=== PATIENT | female | born 1970 | race Caucasian/White ===

== ENCOUNTER 2021-11-04 20:21 | Inpatient (IN) ==
[2021-11-04] MEDS ORDERED: methylPREDNISolone 125 MG/2 ML VIAL IV STA (20:53)
[2021-11-04] MEDS ORDERED: ALBUT/IPRATROP 3MG/0.5MG NEB 3 ML VIAL NEB STA ×2 (20:53→20:54)
[2021-11-04 21:26] LABS: Albumin Globulin Ratio 1.2 (0.9-2); Albumin Level 3.9 gm/dl (3.4-5.0); Bilirubin,Total 0.5 mg/dl (0.2-1.0); Calcium 8.7 mg/dl (8.5-10.1); Creatinine Clr Calc Pharmacy 88.1 ml/min; Est GFR (African American) 94.6 ml/min; Est GFR (Non-African American) 81.6 ml/min; Globulin 3.2 gm/dl (2.5-4.0); Potassium 3.8 mmol/L (3.5-5.1); Total Protein 7.1 gm/dl (6.0-8.3)
[2021-11-04 21:29] LABS: Base Excess VBG 1.2 mEq/L; Oxygen Saturation VBG 75.1 %; pH VBG 7.35 (7.36-7.41)
--- NOTE | 2021-11-04 21:34 | Emergency Department Note ---
History of Present Illness General Chief Complaint: Nausea Time Seen by Provider: 11/04/21 20:47 History of Present Illness Provider Complaint: shortness of breath Onset (ago): day(s) (2) Severity: severe Consistency/Duration: + progressively worsening Relieved By: + nothing Exacerbated By: + exertion and + coughing Context: + recent illness (cough fever); no choking/aspiration, no recent travel or no trauma/injury Known history of: COPD Associated symptoms: + fever, + cough, + wheezing, + sputum production and + chest congestion; no chest pain, no pain with inspiration, no orthopnea, no polyuria, no polydipsia, no palpitations, no diaphoresis, no nausea/vomiting, no syncope, no abdominal pain, no rash, no sense of impending doom or no lightheadedness Treatment prior to arrival: bronchodilator HPI Narrative: Patient denies any history of intubation or ICU admission for obstructive of lung disease. Related Data Home oxygen amount: none Home Medications Medication Instructions Recorded Confirmed Type albuterol sulfate 2.5 mg INHALATION DIRECTED PRN 11/04/21 11/04/21 History albuterol sulfate 90 mcg/actuation 2 puff INHALATION Q4H PRN 11/04/21 11/04/21 History aerosol inhaler aspirin 81 mg tablet,delayed 81 mg PO DAILY 11/04/21 11/04/21 History release fluticasone furoate 200 1 inh INHALATION DAILY 11/04/21 11/04/21 History mcg/actuation blister powder for inhalation (Arnuity Ellipta) fluticasone propionate 50 2 spray INTRANASAL DAILY 11/04/21 11/04/21 History mcg/actuation nasal spray,suspension loratadine 10 mg tablet (Claritin) 10 mg PO DAILY 11/04/21 11/04/21 History losartan 25 mg tablet 25 mg PO DAILY 11/04/21 11/04/21 History montelukast 10 mg tablet 10 mg PO HS 11/04/21 11/04/21 History (Singulair) nicotine 21 mg/24 hr daily 1 patch TRANSDERMAL DAILY 11/04/21 11/04/21 History transdermal patch omeprazole 10 mg capsule,delayed 10 mg PO DAILY 11/04/21 11/04/21 History release umeclidinium 62.5 mcg-vilanterol 1 inh INHALATION DAILY 11/04/21 11/04/21 History 25 mcg/actuation powdr for inhalation (Anoro Ellipta) verapamil 120 mg tablet,extended 120 mg PO DAILY 11/04/21 11/04/21 History release Allergies Allergy/AdvReac Type Severity Reaction Status Date / Time Sulfa (Sulfonamide Allergy Intermediate Rash Verified 11/04/21 21:38 Antibiotics) sulfamethoxazole Allergy Intermediate Rash Verified 11/04/21 21:38 [From Bactrim] trimethoprim [From Bactrim] Allergy Intermediate Rash Verified 11/04/21 21:38 Past Med/Surg History Medical History (Updated 11/04/21 @ 22:28 by Elieser Juares) Asthma Heart disease No pertinent family history Surgical History (Updated 11/04/21 @ 21:27 by Elieser Juares) No pertinent past surgical history Social History Smoking Status: Current some day smoker Feels Safe at Home: Yes Review of Systems A total of 10 systems reviewed and were otherwise negative Physical Exam Vital Signs: Vital Signs - 24 hr 11/04/21 20:31 11/04/21 20:34 11/04/21 20:37 Temperature 37.6 C H Temperature Source Oral Pulse Rate 104 H 110 H 105 H Pulse Rate from Sp O2 Sensor 104 H 105 H Respiratory Rate 20 18 20 Respiratory Effort / Characteristics Non-Labored Sponta neous Respiratory Depth Normal Respiratory Patter n Regular Blood Pressure 120/85 120/85 Blood Pressure Skylar n 96 96 Blood Pressure Pos ition Lying Pulse Oximetry 90 88 L 92 Oxygen Delivery Me thod Nasal Cannula Room Air Oxygen Flow Rate 2 Sepsis Recent Feve r Within 48 Hours No Sepsis New/Unexpla ined Change in Men yadiel Status N/A Sepsis Action Take n by Nursing No Action Required 11/04/21 20:40 11/04/21 20:50 11/04/21 21:00 Temperature Temperature Source Pulse Rate 100 H 95 H 96 H Pulse Rate from Sp O2 Sensor 102 H 95 H 96 H Respiratory Rate 20 20 20 Respiratory Effort / Characteristics Respiratory Depth Respiratory Patter n Blood Pressure 130/77 Blood Pressure Skylar n 94 Blood Pressure Pos ition Pulse Oximetry 97 98 94 Oxygen Delivery Me thod Oxygen Flow Rate Sepsis Recent Feve r Within 48 Hours Sepsis New/Unexpla ined Change in Men yadiel Status Sepsis Action Take n by Nursing 11/04/21 21:10 11/04/21 21:20 11/04/21 21:30 Temperature Temperature Source Pulse Rate 95 H 99 H 112 H Pulse Rate from Sp O2 Sensor 95 H 100 H 102 H Respiratory Rate 20 23 24 Respiratory Effort / Characteristics Respiratory Depth Respiratory Patter n Blood Pressure Blood Pressure Skylar n Blood Pressure Pos ition Pulse Oximetry 96 96 92 Oxygen Delivery Me thod Nasal Cannula Oxygen Flow Rate 2 Sepsis Recent Feve r Within 48 Hours Sepsis New/Unexpla ined Change in Men yadiel Status Sepsis Action Take n by Nursing Physical Exam: Physical Exam GENERAL: She is oriented to person, place, and time. She appears well-developed and well-nourished. She does not appear distressed. HENT: Exam performed. -Head: Normocephalic and atraumatic. -Right Ear: External ear normal. No mastoid tenderness. -Left Ear: External ear normal. No mastoid tenderness. -Mouth/Throat: The oropharynx is clear and moist. No trismus in the jaw. No dental abscesses or uvula swelling. No oropharyngeal exudate or tonsillar abscesses. EYES: Conjunctivae and EOM are normal. Pupils are equal, round, and reactive to light. Right eye exhibits no discharge. Left eye exhibits no discharge. No scleral icterus. NECK: Normal range of motion. Neck supple. No JVD present. No spinous process tenderness present. No carotid bruit present. No rigidity. No tracheal deviation and normal range of motion present. No Brudzinski's sign and no Kernig's sign noted. CV: Tachycardic Rate, regular rhythm, normal heart sounds and intact distal pulses. There is no peripheral edema. Palpable radial pulses bue. PULM/CHEST: Tachypneic, expiratory wheezes bilaterally. -Chest Wall: She exhibits no tenderness. ABD: The abdomen is soft. Bowel sounds are normal. She has no distension. No mass is present. There is no tenderness. There is no rebound, no guarding, no Guy's sign and no tenderness at McBurney's point. Rovsig negative MUSC/SKEL: Normal range of motion. There is no peripheral edema, tenderness or deformity. LYMPH: No cervical adenopathy. NEURO: She is alert and oriented to person, place, and time. She has normal strength. No cranial nerve deficit or sensory deficit. Coordination and gait normal. GCS eye subscore is 4. GCS verbal subscore is 5. GCS motor subscore is 6. Cerebellar tests wnl. SKIN: Skin is warm and dry. She is not diaphoretic. PSYCH: She has a normal mood and affect. Behavior is normal. Judgment and thought content normal. Course Course 2046: The patient was evaluated in room A4. A complete history and physical exam was performed Cardiac monitoring: An order was placed for continuous cardiac monitoring. The monitor shows a rate of 110 with sinus tachycardia rhythm Patient was found to be hypoxic on room air. Patient was placed on supplemental oxygen via nasal cannula which improved her oxygen saturation. 2225: Vital signs stable.Labs and imaging within normal limits. Patient satting well on supplemental oxygen via nasal cannula status post 2 DuoNeb's and IV steroids. [facility]. Administered Medications Discontinued Medications Albuterol (Albut/Ipratrop 3mg/0.5mg Neb 3 Ml Vial) 3 ml NEB NOW STA; Protocol Stop: 11/04/21 20:54 Last Admin: 11/04/21 21:33 Dose: 3 ml Documented by: [id number] Albuterol (Albut/Ipratrop 3mg/0.5mg Neb 3 Ml Vial) 3 ml NEB NOW STA; Protocol Stop: 11/04/21 20:55 Last Admin: 11/04/21 22:17 Dose: 3 ml Documented by: [id number] Methylprednisolone (Methylprednisolone 125 Mg/2 Ml Vial) 125 mg IV NOW STA Stop: 11/04/21 20:54 Last Admin: 11/04/21 21:34 Dose: 125 mg Documented by: [id number] Medical Decision Making Laboratory Data Result diagrams: 11/04/21 21:19 11/04/21 20:30 Lab Results 11/04/21 11/04/21 11/04/21 Range/Units 20:30 21:00 21:18 WBC (4.8-10.8) K/uL RBC (4.2-5.4) M/uL Hgb (12.0-16.0) g/dL Hct (37-47) % MCV (80-100) fL MCH (25-34) pg MCHC (32-36) g/dL RDW Std Deviation (36.4-46.3) fL RDW Coeff of Mayuri (11.5-14.5) % Plt Count (130-400) K/uL MPV (7.4-10.4) fL Immature Gran % (Auto) % Neut % (Auto) % Lymph % (Auto) % [place] % (Auto) % Eos % (Auto) % Baso % (Auto) % Neut # (Auto) (1.4-6.5) K/uL Lymph # (Auto) (1.2-3.4) K/uL [place] # (Auto) (0.11-0.59) K/uL Eos # (Auto) (0-0.5) K/uL Baso # (Auto) (0-0.2) K/uL Immature Gran # (Auto) (0.00-0.02) K/uL VBG pH 7.35 L (7.36-7.41) VBG pCO2 51 H (38-50) mmHg VBG pO2 41 mmHg VBG HCO3 28 mmol/L VBG O2 Saturation 75.1 % VBG Base Excess 1.2 mEq/L Barometric Pressure 732.0 mm/Hg Sodium 140 (136-145) mmol/L Potassium 3.8 (3.5-5.1) mmol/L Chloride 108 H (98-107) mmol/L Carbon Dioxide 26 (21-32) mmol/L Anion Gap 6 (3-11) BUN 10 (6-23) mg/dl Creatinine 0.83 (0.6-1.2) mg/dl Est Cr Clr Drug Dosing 88.1 ml/min Est GFR ( Amer) 94.6 ml/min Est GFR (Non-Af Amer) 81.6 ml/min BUN/Creatinine Ratio 12.0 (10-20) Glucose 103 H (70-99(Fasting)) mg/dl Calcium 8.7 (8.5-10.1) mg/dl Total Bilirubin 0.5 (0.2-1.0) mg/dl AST 14 (13-39) U/L ALT 10 (7-52) U/L Alkaline Phosphatase 102 (34-104) U/L Total Protein 7.1 (6.0-8.3) gm/dl Albumin 3.9 (3.4-5.0) gm/dl Globulin 3.2 (2.5-4.0) gm/dl Albumin/Globulin Ratio 1.2 (0.9-2) SARS-CoV-2 (PCR) NEGATIVE (Negative) Influenza Type A (PCR) Negative (Neg) Influenza Type B (PCR) Negative (Neg) RSV (RT-PCR) Negative (Neg) 11/04/21 Range/Units 21:19 WBC 8.44 (4.8-10.8) K/uL RBC 4.32 (4.2-5.4) M/uL Hgb 13.2 (12.0-16.0) g/dL Hct 40.3 (37-47) % MCV 93.3 (80-100) fL MCH 30.6 (25-34) pg MCHC 32.8 (32-36) g/dL RDW Std Deviation 46.0 (36.4-46.3) fL RDW Coeff of Mayuri 13.5 (11.5-14.5) % Plt Count 173 (130-400) K/uL MPV 12.9 H (7.4-10.4) fL Immature Gran % (Auto) 0.4 % Neut % (Auto) 76.5 % Lymph % (Auto) 15.9 % [place] % (Auto) 6.6 % Eos % (Auto) 0.1 % Baso % (Auto) 0.5 % Neut # (Auto) 6.46 (1.4-6.5) K/uL Lymph # (Auto) 1.34 (1.2-3.4) K/uL [place] # (Auto) 0.56 (0.11-0.59) K/uL Eos # (Auto) 0.01 (0-0.5) K/uL Baso # (Auto) 0.04 (0-0.2) K/uL Immature Gran # (Auto) 0.03 H (0.00-0.02) K/uL VBG pH (7.36-7.41) VBG pCO2 (38-50) mmHg VBG pO2 mmHg VBG HCO3 mmol/L VBG O2 Saturation % VBG Base Excess mEq/L Barometric Pressure mm/Hg Sodium (136-145) mmol/L Potassium (3.5-5.1) mmol/L Chloride (98-107) mmol/L Carbon Dioxide (21-32) mmol/L Anion Gap (3-11) BUN (6-23) mg/dl Creatinine (0.6-1.2) mg/dl Est Cr Clr Drug Dosing ml/min Est GFR ( Amer) ml/min Est GFR (Non-Af Amer) ml/min BUN/Creatinine Ratio (10-20) Glucose (70-99(Fasting)) mg/dl Calcium (8.5-10.1) mg/dl Total Bilirubin (0.2-1.0) mg/dl AST (13-39) U/L ALT (7-52) U/L Alkaline Phosphatase (34-104) U/L Total Protein (6.0-8.3) gm/dl Albumin (3.4-5.0) gm/dl Globulin (2.5-4.0) gm/dl Albumin/Globulin Ratio (0.9-2) SARS-CoV-2 (PCR) (Negative) Influenza Type A (PCR) (Neg) Influenza Type B (PCR) (Neg) RSV (RT-PCR) (Neg) Imaging Data My Impression: Chest x-ray negative. Airway clear. No pneumothorax. No consolidation. No cardiomegaly or cephalization.. No free air under the diaphragm. No fractures of the skeletal structures. ECG Data Interpretation: Sinus tachycardia with rate of 103. MI QRS and QTc intervals are within normal limits. No ST elevation or ST depression. [facility] Narrative 2046: The patient was evaluated in room A4. A complete history and physical exam was performed Cardiac monitoring: An order was placed for continuous cardiac monitoring. The monitor shows a rate of 110 with sinus tachycardia rhythm Patient was found to be hypoxic on room air. Patient was placed on supplemental oxygen via nasal cannula which improved her oxygen saturation. 2226: Vital signs stable.Labs and imaging within normal limits. Patient satting well on supplemental oxygen via nasal cannula status post 2 DuoNeb's and IV steroids. [facility]. Impression & Plan Hypoxia, Asthma exacerbation in COPD Critical Care Time Critical Care Time: Yes Total Critical Care Time: 51 I have personally spent greater than 51 minutes of critical care time in the direct management of this patient. This includes bedside care, interpretation of diagnostic studies, and testing, discussion with consultants, patient, and family members, and other required patient management activities. This 51 minutes is in excess of all separately billable procedures. Discharge Plan Visit Data Chief Complaint: Nausea ED Provider: Elieser Juares Discharge Problem: Hypoxia, Asthma exacerbation in COPD Patient Disposition: Admitted As Inpatient Forms Stand Alone Forms: My [facility] Prescriptions Prescriptions: No Action verapamil 120 mg Tablet Extended Release 120 mg PO DAILY RF: 0 albuterol sulfate 2.5 mg /3 mL (0.083 %) Solution For Nebulization 2.5 mg INHALATION DIRECTED PRN (Reason: Shortness Of Breath) RF: 0 aspirin 81 mg Tablet,Delayed Release (Dr/Ec) 81 mg PO DAILY RF: 0 omeprazole 10 mg Capsule,Delayed Release(Dr/Ec) 10 mg PO DAILY RF: 0 losartan 25 mg Tablet 25 mg PO DAILY RF: 0 nicotine 21 mg/24 hr Patch 24 Hour 1 patch TRANSDERMAL DAILY RF: 0 montelukast [Singulair] 10 mg Tablet 10 mg PO HS RF: 0 albuterol sulfate 90 mcg/actuation Hfa Aerosol Inhaler 2 puff INHALATION Q4H PRN (Reason: Wheezing/COUGH) RF: 0 fluticasone propionate [Flonase] 50 mcg/actuation [place],Suspension 2 spray INTRANASAL DAILY RF: 0 loratadine [Claritin] 10 mg Tablet 10 mg PO DAILY RF: 0 Anoro Ellipta 62.5-25 mcg/actuation Blister With Device 1 inh INHALATION DAILY RF: 0 Arnuity Ellipta 200 mcg/actuation Blister With Device 1 inh INHALATION DAILY RF: 0 Referrals Referrals: Reilly Lewis [Outside Practitioners] -
[2021-11-04 21:52] LABS: Influenza A virus by PCR Negative (Neg); Influenza B virus by PCR Negative (Neg); RSV by PCR Negative (Neg); SARS CoV2 RNA(COVID-19) InHosp NEGATIVE (Negative)
[2021-11-04 21:58] LABS: Basophils # (auto) 0.04 K/uL (0-0.2); Basophils % (auto) 0.5 %; Eosinophils # (auto) 0.01 K/uL (0-0.5); Eosinophils % (auto) 0.1 %; Hematocrit (blood only) 40.3 % (37-47); Hemoglobin 13.2 g/dL (12.0-16.0); Immature Granulocytes # (auto) 0.03 K/uL (0.00-0.02); Immature Granulocytes % (auto) 0.4 %; Lymphocytes # (auto) 1.34 K/uL (1.2-3.4); Lymphocytes % (auto) 15.9 %; Mean Corpuscular Hemoglobin 30.6 pg (25-34); Mean Corpuscular Hgb Conc 32.8 g/dL (32-36); Mean Corpuscular Volume 93.3 fL (80-100); Mean Platelet Volume 12.9 fL (7.4-10.4); Monocytes # (auto) 0.56 K/uL (0.11-0.59); Monocytes % (auto) 6.6 %; Neutrophils # (auto) 6.46 K/uL (1.4-6.5); Neutrophils % (auto) 76.5 %; Platelet Count 173 K/uL (130-400); RDW Coefficient of Variation 13.5 % (11.5-14.5); Red Blood Count 4.32 M/uL (4.2-5.4); White Blood Count 8.44 K/uL (4.8-10.8)
[2021-11-04] MEDS ORDERED: POTASSIUM CHLORIDE CRTAB 20 MEQ TABCR PO STA (22:25)
[2021-11-04] MEDS ORDERED: MAGNESIUM SULFATE / D5W 1 GM/100 ML BAG IV ONE (22:25)
[2021-11-04] MEDS ORDERED: DOXYCYCLINE HYCLATE 100 MG in DEXTROSE 5% 100 ML IV STA (22:25)
[2021-11-04] MEDS ORDERED: ACETAMINOPHEN 325 MG TAB PO STA (22:26)
[2021-11-04 22:46] LABS: Base Excess ABG 0.7 mEq/L (-9-1.8); HCO3 ABG 26 mmol/L (19-24); Oxygen Saturation ABG 99.3 % (90-95); PCO2 ABG 45 mmHg (35-46); PO2 ABG 173 mmHg (80-95); pH ABG 7.39 (7.35-7.45)
[2021-11-04 22:50] LABS: Allen Test Pos (Pos)
--- NOTE | 2021-11-04 22:53 | History & Physical Report ---
Date of Service November 04, 2021 Assessment & Plan (1) Acute hypoxemic respiratory failure: Plan: Secondary to COPD exacerbation/complicated bronchitis Severe sepsis secondary to above chronic diastolic heart failure (EF 65 to 69%, TTE 2020 ), patient euvolemic to dry history of palpitations on verapamil history CAD/splenic artery aneurysm as per records, hypertension, BP on the lower side hx traumatic ICH ongoing tobacco abuse Medical telemetry Supplemental O2 Baseline ABG CS, check lactic acid, IVF, Doxycycline Nebs RTC, prednisone course Pulmonary consult if without improvement Nicotine patch DVT prophylaxis. Lovenox subcu Full code Text document was generated using [employer] voice recognition software. It may contain grammatical or spelling errors. Kindly contact undersigned for clarification of any documentation item in question. History of Present Illness Chief Complaint: Worsening cough, shortness of breath Primary Care Provider: Fabricio Og MD History obtained from patient, family, and records. Medical history significant for chronic diastolic heart failure (EF 65 to 69%, TTE 2020 ), history of palpitations on verapamil, history CAD/splenic artery aneurysm as per records, COPD, hypertension, traumatic ICH, NAFLD, ongoing tobacco abuse. 3 days history of junky cough symptoms and wheezing, worsening shortness of breath without chest pain. Denies aspiration, no known sick contacts. Patient completed COVID-19 vaccination. No fluid retention. Patient received steroid and neb treatment at the ER for COPD exacerbation. Medical History as above Surgical History : Partial vulvectomy Family History : COPD, anxiety disorder Personal/Social history : 1/2 pack daily, occasional EtOH intake, applying for disability Allergies Allergy/AdvReac Type Severity Reaction Status Date / Time Sulfa (Sulfonamide Allergy Intermediate Rash Verified 11/04/21 21:38 Antibiotics) sulfamethoxazole Allergy Intermediate Rash Verified 11/04/21 21:38 [From Bactrim] trimethoprim [From Bactrim] Allergy Intermediate Rash Verified 11/04/21 21:38 Home Medications Medication Instructions Recorded Confirmed Type albuterol sulfate 2.5 mg INHALATION DIRECTED PRN 11/04/21 11/04/21 History albuterol sulfate 90 mcg/actuation 2 puff INHALATION Q4H PRN 11/04/21 11/04/21 History aerosol inhaler aspirin 81 mg tablet,delayed 81 mg PO DAILY 11/04/21 11/04/21 History release fluticasone furoate 200 1 inh INHALATION DAILY 11/04/21 11/04/21 History mcg/actuation blister powder for inhalation (Arnuity Ellipta) fluticasone propionate 50 2 spray INTRANASAL DAILY 11/04/21 11/04/21 History mcg/actuation nasal spray,suspension loratadine 10 mg tablet (Claritin) 10 mg PO DAILY 11/04/21 11/04/21 History losartan 25 mg tablet 25 mg PO DAILY 11/04/21 11/04/21 History montelukast 10 mg tablet 10 mg PO HS 11/04/21 11/04/21 History (Singulair) nicotine 21 mg/24 hr daily 1 patch TRANSDERMAL DAILY 11/04/21 11/04/21 History transdermal patch omeprazole 10 mg capsule,delayed 10 mg PO DAILY 11/04/21 11/04/21 History release umeclidinium 62.5 mcg-vilanterol 1 inh INHALATION DAILY 11/04/21 11/04/21 History 25 mcg/actuation powdr for inhalation (Anoro Ellipta) verapamil 120 mg tablet,extended 120 mg PO DAILY 11/04/21 11/04/21 History release Past Med/Surg History Medical History (Updated 11/05/21 @ 00:03 by Everett Gutierrez MD) Asthma Heart disease No pertinent family history Surgical History (Updated 11/04/21 @ 21:27 by Elieser Juares) No pertinent past surgical history Social History Smoking Status: Current some day smoker Feels Safe at Home: Yes Review of Systems Review of Systems: As per HPI, all 10 systems reviewed, all other ROS negative Physical Exam Physical Exam: GENERAL: Slightly uncomfortable, obese, no respiratory distress SKIN: Normal color, warm HEENT: [place] palpebral conjunctivae, no ptosis, dry buccal mucosa, nasal cannula in place NECK : Supple, short neck, no tenderness CHEST : Decreased breath sounds, expiratory wheezes, no tenderness HEART : Tachycardic, no obvious murmurs ABDOMEN: Some distention, nontender EXTREMITIES : Minimal LE swelling, no LE tenderness, no other conspicuous deformities noted NEUROLOGIC : Coherent, no facial asymmetry, no other gross focality Results & Data Results & Data ([facility]) Vital Signs (Past 12 Hours) Vital Signs Temp Pulse Resp BP Pulse Ox 11/04/21 21:30 112 H 24 92 11/04/21 21:20 99 H 23 96 11/04/21 21:10 95 H 20 96 11/04/21 21:00 96 H 20 130/77 94 11/04/21 20:50 95 H 20 98 11/04/21 20:40 100 H 20 97 11/04/21 20:37 105 H 20 120/85 92 11/04/21 20:34 37.6 C H 110 H 18 120/85 88 L 11/04/21 20:31 104 H 20 90 Laboratory Results Laboratory Results WBC 8.44 K/uL (4.8-10.8) 11/04/21 21:19 RBC 4.32 M/uL (4.2-5.4) 11/04/21 21:19 Hgb 13.2 g/dL (12.0-16.0) 11/04/21 21:19 Hct 40.3 % (37-47) 11/04/21 21:19 MCV 93.3 fL (80-100) 11/04/21 21:19 MCH 30.6 pg (25-34) 11/04/21 21:19 MCHC 32.8 g/dL (32-36) 11/04/21 21:19 RDW Std Deviation 46.0 fL (36.4-46.3) 11/04/21 21:19 RDW Coeff of Mayuri 13.5 % (11.5-14.5) 11/04/21 21:19 Plt Count 173 K/uL (130-400) 11/04/21 21:19 MPV 12.9 fL (7.4-10.4) H 11/04/21 21:19 Immature Gran % (Auto) 0.4 % 11/04/21 21:19 Neut % (Auto) 76.5 % 11/04/21 21:19 Lymph % (Auto) 15.9 % 11/04/21 21:19 [place] % (Auto) 6.6 % 11/04/21 21:19 Eos % (Auto) 0.1 % 11/04/21 21:19 Baso % (Auto) 0.5 % 11/04/21 21:19 Neut # (Auto) 6.46 K/uL (1.4-6.5) 11/04/21 21:19 Lymph # (Auto) 1.34 K/uL (1.2-3.4) 04/11/22 21:19 [place] # (Auto) 0.56 K/uL (0.11-0.59) 11/04/21 21:19 Eos # (Auto) 0.01 K/uL (0-0.5) 11/04/21 21:19 Baso # (Auto) 0.04 K/uL (0-0.2) 11/04/21 21:19 Immature Gran # (Auto) 0.03 K/uL (0.00-0.02) H 11/04/21 21:19 ABG pH 7.39 (7.35-7.45) 11/04/21 22:35 ABG pCO2 45 mmHg (35-46) 11/04/21 22:35 ABG pO2 173 mmHg (80-95) H 11/04/21 22:35 ABG HCO3 26 mmol/L (19-24) H 11/04/21 22:35 ABG O2 Saturation 99.3 % (90-95) H 11/04/21 22:35 ABG Base Excess 0.7 mEq/L (-9-1.8) 11/04/21 22:35 [place] Test Pos (Pos) 11/04/21 22:35 VBG pH 7.35 (7.36-7.41) L 11/04/21 21:18 VBG pCO2 51 mmHg (38-50) H 11/04/21 21:18 VBG pO2 41 mmHg 11/04/21 21:18 VBG HCO3 28 mmol/L 11/04/21 21:18 VBG O2 Saturation 75.1 % 11/04/21 21:18 VBG Base Excess 1.2 mEq/L 11/04/21 21:18 Barometric Pressure 732.0 mm/Hg 11/04/21 21:18 Oxygen Given RA 11/04/21 22:35 Sodium 140 mmol/L (136-145) 11/04/21 20:30 Potassium 3.8 mmol/L (3.5-5.1) 11/04/21 20:30 Chloride 108 mmol/L (98-107) H 11/04/21 20:30 Carbon Dioxide 26 mmol/L (21-32) 11/04/21 20:30 Anion Gap 6 (3-11) 11/04/21 20:30 BUN 10 mg/dl (6-23) 11/04/21 20:30 Creatinine 0.83 mg/dl (0.6-1.2) 11/04/21 20:30 Est Cr Clr Drug Dosing 88.1 ml/min 11/04/21 20:30 Est GFR ( Amer) 94.6 ml/min 11/04/21 20:30 Est GFR (Non-Af Amer) 81.6 ml/min 11/04/21 20:30 BUN/Creatinine Ratio 12.0 (10-20) 11/04/21 20:30 Glucose 103 mg/dl (70-99(Fasting)) H 11/04/21 20:30 Calcium 8.7 mg/dl (8.5-10.1) 11/04/21 20:30 Total Bilirubin 0.5 mg/dl (0.2-1.0) 11/04/21 20:30 AST 14 U/L (13-39) 11/04/21 20:30 ALT 10 U/L (7-52) 11/04/21 20:30 Alkaline Phosphatase 102 U/L (34-104) 11/04/21 20:30 Total Protein 7.1 gm/dl (6.0-8.3) 11/04/21 20:30 Albumin 3.9 gm/dl (3.4-5.0) 11/04/21 20:30 Globulin 3.2 gm/dl (2.5-4.0) 11/04/21 20:30 Albumin/Globulin Ratio 1.2 (0.9-2) 11/04/21 20:30 SARS-CoV-2 (PCR) NEGATIVE (Negative) 11/04/21 21:00 Influenza Type A (PCR) Negative (Neg) 11/04/21 21:00 Influenza Type B (PCR) Negative (Neg) 11/04/21 21:00 RSV (RT-PCR) Negative (Neg) 11/04/21 21:00 Diagnostic Findings Chest x-ray as per my interpretation no infiltrate, atelectasis EKG pending
[2021-11-04] MEDS ORDERED: NICOTINE 14 MG/24 HR PATCH TD SCH (22:55)
[2021-11-04 22:59] LABS: Partial Thromboplastin Ratio 0.8
[2021-11-04] MEDS: LACTATED RINGER'S 1,000 ML IV ONE ×2 (23:14→23:38)
[2021-11-05] MEDS ORDERED: traMADol HCL 50 MG TABLET PO PRN (00:14)
[2021-11-05] MEDS ORDERED: ACETAMINOPHEN 325 MG TAB PO PRN (00:14)
[2021-11-05] MEDS ORDERED: PROMETHAZINE HCL 12.5 MG in SODIUM CHLORIDE 0.9% 50 ML IV PRN (00:14)
[2021-11-05] MEDS ORDERED: XOPENEX/ATROVENT 1.25mg/0.5MG NEB COMBO NEB SCH (01:00)
[2021-11-05] MEDS: LEVALBUTEROL 1.25MG/0.5ML NEB INH SCH ×3 (01:10→13:05)
[2021-11-05] MEDS: IPRATROPIUM BROMIDE NEB SOLN 0.02% 2.5 ML VIAL INH SCH ×3 (01:10→13:05)
--- NOTE | 2021-11-05 07:13 | XRay Report ---
XR chest 1V portable CLINICAL HISTORY: sob. COMPARISON STUDY: 06/24/2016 TECHNIQUE: 1 view of the chest FINDINGS: Single frontal view of the chest demonstrates the cardiomediastinal silhouette to be within normal li mits. There is a decreased inspiratory effort with elevation of the hemidiaphragms and crowding of th e bronchovascular markings at the lung bases and centrally. The lungs are clear of alveolar opacities . There is no evidence for pleural effusion. There is no evidence for vascular congestion. There is n o acute osseous pathology. IMPRESSION: 1. . There is a decreased inspiratory effort with otherwise no acute chest disease. ACT 112: Negative or not required by law. Electronically signed by: Dharmesh Coon M.D. 11/05/2021 7:12 AM
[2021-11-05] MEDS ORDERED: DOXYCYCLINE HYCLATE 100 MG CAP PO SCH (09:00)
[2021-11-05] MEDS ORDERED: predniSONE 20 MG TAB PO SCH (09:00)
[2021-11-05] MEDS ORDERED: ENOXAPARIN INJ 40 MG/0.4 ML SYR SQ SCH (09:00)
[2021-11-05] MEDS ORDERED: PANTOprazole 40 MG TAB PO SCH (09:00)
[2021-11-05] MEDS ORDERED: ASPIRIN 81 MG ECTAB PO SCH (09:00)
[2021-11-05] MEDS ORDERED: FLUTICASONE FUROATE 200MCG 14 PUFFS/INHALER INH SCH (09:00)
[2021-11-05] MEDS ORDERED: LORATADINE 10 MG TAB PO SCH (09:00)
[2021-11-05] MEDS ORDERED: LOSARTAN POTASSIUM 25 MG TAB PO SCH (09:00)
[2021-11-05] MEDS ORDERED: UMECLIDINIUM/VILANTEROL 62.5/25MCG 7 PUFFS/INHALER INH SCH (09:00)
[2021-11-05] MEDS ORDERED: VERAPAMIL HCL 120 MG TABCR PO SCH (09:00)
[2021-11-05] MEDS ORDERED: FLUTICASONE PROPIONATE NA SPR 16 GM BTL NAE SCH (09:00)
[2021-11-05] MEDS ORDERED: NICOTINE 21 MG/24 HR TDSY TD SCH (09:00)
--- NOTE | 2021-11-05 15:21 | Discharge Summary ---
Date of Service November 05, 2021 Admission HPI Per Admitting Provider History obtained from patient, family, and records. Medical history significant for chronic diastolic heart failure (EF 65 to 69%, TTE 2020 ), history of palpitations on verapamil, history CAD/splenic artery aneurysm as per records, COPD, hypertension, traumatic ICH, NAFLD, ongoing tobacco abuse. 3 days history of junky cough symptoms and wheezing, worsening shortness of breath without chest pain. Denies aspiration, no known sick contacts. Patient completed COVID-19 vaccination. No fluid retention. Patient received steroid and neb treatment at the ER for COPD exacerbation. Medical History as above Surgical History : Partial vulvectomy Family History : COPD, anxiety disorder Personal/Social history : 1/2 pack daily, occasional EtOH intake, applying for disability Admission Exam Per Admitting Provider GENERAL: Slightly uncomfortable, obese, no respiratory distress SKIN: Normal color, warm HEENT: [place] palpebral conjunctivae, no ptosis, dry buccal mucosa, nasal cannula in place NECK : Supple, short neck, no tenderness CHEST : Decreased breath sounds, expiratory wheezes, no tenderness HEART : Tachycardic, no obvious murmurs ABDOMEN: Some distention, nontender EXTREMITIES : Minimal LE swelling, no LE tenderness, no other conspicuous deformities noted NEUROLOGIC : Coherent, no facial asymmetry, no other gross focality Principal Diagnosis Acute hypoxemic respiratory failure Discharge Exam General- No acute distress Head- atraumatic Eyes- PERRL, EOMI, ENT- oropharynx clear Neck- supple, no JVD Lungs- Diminished breath sound Heart- regular rhythm; no murmur Abdomen- normal bowel sounds, soft, nontender Extremities- no calf tenderness Neuro- alert, oriented x 3; PERRL, EOMI; no facial palsy; no dysarthria Skin- warm & dry Discharge Data Allergies Allergy/AdvReac Type Severity Reaction Status Date / Time Sulfa (Sulfonamide Allergy Intermediate Rash Verified 11/04/21 21:38 Antibiotics) sulfamethoxazole Allergy Intermediate Rash Verified 11/04/21 21:38 [From Bactrim] trimethoprim [From Bactrim] Allergy Intermediate Rash Verified 11/04/21 21:38 Consultations 11/04/21 22:21 ED Decision to Admit Stat Ordered Studies R chest 1V portable CLINICAL HISTORY: sob. COMPARISON STUDY: 06/24/2016 TECHNIQUE: 1 view of the chest FINDINGS: Single frontal view of the chest demonstrates the cardiomediastinal silhouette to be within normal limits. There is a decreased inspiratory effort with elevation of the hemidiaphragms and crowding of the bronchovascular markings at the lung bases and centrally. The lungs are clear of alveolar opacities. There is no evidence for pleural effusion. There is no evidence for vascular congestion. There is no acute osseous pathology. IMPRESSION: 1. . There is a decreased inspiratory effort with otherwise no acute chest disease. ACT 112: Negative or not required by law. Electronically signed by: Dahrmesh Coon M.D. 11/05/2021 7:12 AM Dictated:11/05/21710 Transcribed: 11/05/21710 Hospital Course (1) Acute hypoxemic respiratory failure: Secondary to COPD exacerbation/complicated bronchitis CXR showed decreased inspiratory effort with otherwise no acute chest disease. Received Solumedrol and doxycycline on admission Continue Steroid and doxycycline Continue neb treatment Pt has been off oxygen supplement Walk in the hallway while monitor her oxygen level that was above 90% Will discharge home to complete short course of abx and steroid chronic diastolic heart failure (EF 65 to 69%, TTE 2020 ), patient euvolemic to dry Stable History of palpitations Continue verapamil Tobacco abuse Nicotine patch Counseling on smoking cessation DVT prophylaxis. Lovenox subcu Full code Total Time Total Time Spent Total Time Spent (In Minutes): 35 minutes Discharge Plan Discharge Items Patient Disposition: Home - Self-Care Reason For Visit: RESP FAILURE Discharge Diagnosis: Acute hypoxemic respiratory failure Activity: Resume your previous activity Non-emergency contact: Primary Care Provider Call non-emergency contact if: you have any medication questions and your symptoms worsen Follow-up/Referrals: Fabricio Og MD [Primary Care Provider] - (Date & Time 11/11/2021 10:00 AM Provider Fabricio Og MD Department [facility] ) Diet: Heart Healthy Addtl Attending Provider Instructions: Follow up with your primary care provider dr. Og on 11/11/2021 @ 10:00 AM at the [facility] Counseling on smoking cessation Complete the course of prednisone and antibiotic Continue nebulizer treatment with albuterol inhaler and ipratropium Seek medical attention if you develop any shortness of breath Pending Studies at Discharge: No Stand-Alone Forms: My [employer], Smoking Cessation Medications and DC Order Prescriptions: New ipratropium bromide 0.02 % Solution 0.5 mg inhalation Q6R Qty: 30 RF: 0 Continued verapamil 120 mg Tablet Extended Release 120 mg PO DAILY RF: 0 albuterol sulfate 2.5 mg /3 mL (0.083 %) Solution For Nebulization 2.5 mg INHALATION DIRECTED PRN (Reason: Shortness Of Breath) RF: 0 aspirin 81 mg Tablet,Delayed Release (Dr/Ec) 81 mg PO DAILY RF: 0 omeprazole 10 mg Capsule,Delayed Release(Dr/Ec) 10 mg PO DAILY RF: 0 losartan 25 mg Tablet 25 mg PO DAILY RF: 0 nicotine 21 mg/24 hr Patch 24 Hour 1 patch TRANSDERMAL DAILY RF: 0 montelukast [Singulair] 10 mg Tablet 10 mg PO HS RF: 0 albuterol sulfate 90 mcg/actuation Hfa Aerosol Inhaler 2 puff INHALATION Q4H PRN (Reason: Wheezing/COUGH) RF: 0 fluticasone propionate 50 mcg/actuation [place],Suspension 2 spray INTRANASAL DAILY RF: 0 loratadine [Claritin] 10 mg Tablet 10 mg PO DAILY RF: 0 Anoro Ellipta 62.5-25 mcg/actuation Blister With Device 1 inh INHALATION DAILY RF: 0 Arnuity Ellipta 200 mcg/actuation Blister With Device 1 inh INHALATION DAILY RF: 0 Discharge Orders: Discharge Order (Routine); Ordered 11/05/21 Ordered By: Clarence Wise Admission Data Admit Date/Time: 11/04/21 22:56 Attending Provider: Clarence Wise Admit Provider: Everett Gutierrez Primary Care Provider: Fabricio Og Other Providers: Everett Gutierrez Other Interventions: Discharge Summary Assessment (RN) Last Done: 11/05/21 15:28
[2021-11-05] MEDS ORDERED: MONTELUKAST SODIUM 10 MG TABLET PO SCH (21:00)
--- NOTE | 2021-11-06 05:26 | Electrocardiogram Report ---
Test Reason : Blood Pressure : / mmHG Vent. Rate : 103 BPM Atrial Rate : 103 BPM P-R Int : 168 ms QRS Dur : 082 ms QT Int : 330 ms P-R-T Axes : 070 059 077 degrees QTc Int : 432 ms Sinus tachycardia Otherwise normal ECG When compared with ECG of 25-AUG-2010 22:52, Premature ventricular complexes are no longer Present Confirmed by Maximo Leos ([id number]) on 11/06/2021 5:26:02 AM Referred By: REFERRED SELF Confirmed By:Maximo Leos
== END 2021-11-05 16:20 | disposition home or self-care (01) | DRG 871 ==
LOC: ED 20:21 → 2N 22:56
DX: A41.9 Sepsis, unspecified organism; J45.901 Unspecified asthma with (acute) exacerbation; Z88.2 Allergy status to sulfonamides; J44.0 Chronic obstructive pulmonary disease with (acute) lower respiratory infection; R65.20 Severe sepsis without septic shock; F17.210 Nicotine dependence, cigarettes, uncomplicated; I11.0 Hypertensive heart disease with heart failure; Z79.82 Long term (current) use of aspirin; I50.32 Chronic diastolic (congestive) heart failure; I25.10 Atherosclerotic heart disease of native coronary artery without angina pectoris; J96.01 Acute respiratory failure with hypoxia; J44.1 Chronic obstructive pulmonary disease with (acute) exacerbation